=== PATIENT | male | born 1940 | race Caucasian/White ===

== ENCOUNTER 2023-11-17 13:14 | Emergency (ER) | payer OTHER, SELFPAY ==
[2023-11-17 13:22] VITALS: BP 134/98
[2023-11-17 13:39] LABS: % Basophils 0.4 % (0-2); % Eosinophils 2.3 % (0-6); % Immature Granulocytes 0.2 % (0-0.5); % Lymphocytes 19.7 % (20.5-51.1); % Monocytes 7.5 % (1.7-9.3); % Neutrophils 69.9 % (42.2-75.2); Absolute Eosinophils 0.2 10^3/uL (0-0.7); Absolute Lymphocytes 1.6 10^3/uL (1.2-3.4); Absolute Monocytes 0.6 10^3/uL (0.1-0.6); Absolute Neutrophils 5.8 10^3/uL (1.4-6.5); Hematocrit 48.6 % (39.0-52.0); Hemoglobin 16.3 g/dL (13.0-18.0); Mean Corp Hgb Conc. 33.5 g/dL (33.0-37.0); Mean Corpuscular Hgb 29.2 pg (27.0-31.0); Mean Corpuscular Volume 87.1 fL (80.0-94.0); Mean Platelet Volume 8.5 fL (7.4-10.4); Nucleated Red Blood Cells % 0 % (-); Platelet Count 224 10^3/uL (130-400); Red Blood Cell Count 5.58 10^6/uL (4.70-6.10); Red Cell Dist. Width 13.4 % (11.5-14.5); White Blood Cell Count 8.2 10^3/uL (4.8-10.8)
--- NOTE | 2023-11-17 13:57 | ED.GENMED ---
History of Present Illness
General
Chief Complaint: Chest Pain
Source: patient
Exam Limitations: none
Time Seen by Provider: 11/17/23 13:54
Nursing documentation reviewed up to this point in time: agreed with
Travel History
Have you had any contact with someone who has COVID-19?: No
Do you have any symptoms of coronavirus? Fever > 100 degrees, chills, cough, shortness of breath, sore throat, loss of taste or smell, muscle aches, or headache?: No
History of Present Illness
History of Present Illness:
83-year-old male with history of A-fib, on Metoprolol, not anticoagulated due to stopping his Eliquis on his own 2 years ago, states he has intermittent recent rectal bleeding every 3-4 weeks with constipation. Hx HTN colon resection 15 yrs ago
biopsy neg for CA.
Pt states he awakened at 9 a.m. with mid chest pain, worse with breathing, gets to 8/10 with deep breaths. 'I feel it a little bit under my chin,' otherwise no radiation, denies palpitations, SOB, abd pain, denies feeling weak or lightheaded, denies
numbness, tingling, weakness in extremities.
Past History
Past History
ED Past Medical History: Arrthythmia (atrial fibrillation) and HTN; Negative CAD, Hypercholesterolemia or NIDDM
ED Past Surgical History: Bowel resection (Colon Resection, for removal of tumor deemed noncancerous.) and Orthopedic (Hip replacement)
Social History
Tobacco: Non-smoker
Alcohol: None
Drug: None
Personal:
Living: alone
Employment: Retired
Family History
Family History: Hypertension; Negative CAD
Review of Systems
Review of Systems
Allergies reviewed?: Yes
All Other Systems: ROS reviewed and negative except as documented in HPI and ROS
Constitutional: Denies fever or fatigue
Respiratory: Denies cough or trouble breathing
Cardiac: Reports chest pain; Denies diaphoresis, palpitations or syncope
ABD/GI: Denies abdominal pain, nausea or diarrhea
: Denies dysuria, difficulty voiding or urgency
Musculoskeletal: Denies edema
Skin: Reports no symptoms
Neurological: Reports no symptoms
Phy Exam
Physical Exam
Physical Exam:
GENERAL: No acute distress. A&Ox3.
CONSTITUTIONAL: Afebrile.
EYES: clear, conjunctivae normal.
ENMT: moist mucus membranes, Pharynx nl
RESPIRATORY: Regular respirations, nonlabored, lungs clear.
CARDIOVASCULAR: Regular rate and rhythm, no murmurs, no rubs.
GI: Soft, nontender, normal BS
MUSCULOSKELETAL: Moves with ease. Well perfused. No edema
SKIN: Warm, dry, pink
PSYCH: Normal mood and affect. Well kept, interactive and appropriate
NEUROLOGIC: Awake, alert and oriented. No focal neurological deficits
Scores
Heart Score for Chest Pain Patients
STEMI patient?: Not applicable
Course
Orders/Labs/Results
Orders:
Orders
11/17/23 13:16
Electrocardiogram (*1) Urgent
Reason for Study: Chest Pain
EKG- Treatment ONCE
11/17/23 13:26
CR Chest - 2 Views Urgent
Comment:
Reason For Exam: chest pain
11/17/23 13:28
Complete Blood Count/With Diff Urgent
Comprehensive Metabolic Panel Urgent
Troponin I Urgent
11/17/23 14:27
Mag Hydrox/Al Hydrox/Simeth [Maalox] 30 ml Phenobarb/Hyoscy/Atropine/Scop [] 10 ml Viscous Lidocaine 2% [Xylocaine Viscous Cup] 10 ml PO NOW
11/17/23 14:55
Mag Hydrox/Al Hydrox/Simeth [Maalox] 30 ml .ROUTE .STK-MED ONE
Phenobarb/Hyoscy/Atropine/Scop [] 10 ml .ROUTE .STK-MED ONE
Viscous Lidocaine 2% [Xylocaine Viscous Cup] 15 ml .ROUTE .STK-MED ONE
11/17/23 16:24
Troponin I Urgent
Abnormal Lab Results
11/17/23
13:28
Lymphocytes % 19.7 L %
(20.5-51.1)
Chloride 97 L mmol/L
(98-107)
Carbon Dioxide 32 H mmol/L
(22-30)
BUN 25 H mg/dl
(9-20)
Glucose 122 H mg/dl
(70-99)
Total Bilirubin 1.5 H mg/dl
(0.2-1.3)
11/17/23 13:28
11/17/23 13:28
Vital Signs
Initial and Last Documented VS:
Initial Vital Signs
Temp Pulse Resp BP Pulse Ox
98.3 F 98 20 134/98 98
11/17/23 13:22 11/17/23 13:22 11/17/23 13:22 11/17/23 13:22 11/17/23 13:22
Last Documented Vital Signs
Temp Pulse Resp BP Pulse Ox
98.3 F 94 20 111/79 98
11/17/23 13:22 11/17/23 17:15 11/17/23 17:15 11/17/23 17:00 11/17/23 13:22
MDM/Problems Addressed
Differential Diagnosis Includes:
[place], pleurisy, GERD, musculoskeletal
MDM/Problems Addressed:
83-year-old male with history of A-fib, on Metoprolol, not anticoagulated due to stopping his Eliquis on his own 2 years ago, states he has intermittent recent rectal bleeding every 3-4 weeks with constipation. Hx HTN colon resection 15 yrs ago
biopsy neg for CA.
Pt states he awakened at 9 a.m. with mid chest pain, worse with breathing, gets to 8/10 with deep breaths. 'I feel it a little bit under my chin,' otherwise no radiation, denies palpitations, SOB, abd pain, denies feeling weak or lightheaded, denies
numbness, tingling, weakness in extremities.
ED Record from 04/16/18 has pt presenting with similar symptoms and neg workup
EKG: A fib HR 99
2:20 PM
CBC normal
CMP:No clinically significant abnormality
Chest x-ray: Radiology report read: No acute cardiopulmonary process.
Troponin: WNL
'A little' relief of chest pressure after GI cocktail.
Will check second troponin if that is normal I will discharge patient on a PPI with GI and Cardiology follow-up.
Troponin #2 is normal. Patient stable for discharge.
Referred back to PCP to assess PPI effectiveness, GI referral given if needed
Recommended cardiology f/u
Chronic conditions affecting care: HTN and Arrhythmia
*EKG
EKG Intrepretation Date: 11/17/23
Interpretation: abnormal
Comparison EKG: changes noted (T wave inversion in lateral leads)
Rate: normal
Rhythm: a-fib
[place]: normal axis
QRS Pattern: normal QRS
Ischemia: no ischemia
*Critical Care Note
Total Time (30-74mins, 75-104mins- exclusive of procedures): Not Applicable
ED Attending Note
-
Portions of this chart may have been created with voice recognition software.� Occasional wrong word or��sound alike� substitutions may have occurred due to the inherent limitations of voice recognition software.
Discharge Plan
Departure
Patient Disposition: Home (Routine Discharge)
Date of Disposition: 11/17/23
Time of Disposition: 17:16
Patient with high blood pressure during this ER visit?: No
Condition: Good
Discharge Problem:
Atypical chest pain
Instructions: Chest Pain That Is Not Caused by the Heart (DC), Acid Reflux and GERD in Adults (DC)
Prescriptions:
New
pantoprazole [Protonix] 40 mg tablet,delayed release (DR/EC)
40 mg PO DAILY Qty: 20 0RF
No Action
Atenolol
50 mg PO DAILY
Patient Comments:
unsure whether he took it yesterday morning and of actual dose
benzonatate 100 MG capsule
100 mg PO TIDPRN PRN (Reason: cough) Qty: 20 0RF
codeine-guaifenesin [Guaiatussin AC] 200 MG/20 MG liquid
5 - 10 ml PO .Q4-6HPRN PRN (Reason: COUGH) Qty: 100 0RF
albuterol sulfate 1 PUFF HFA aerosol inhaler
1 - 2 puff inhalation .Q4-6HPRN PRN (Reason: WHEEZING) Qty: 1 0RF
apixaban [Eliquis DVT-PE Treat 30D Start] 5 MG tablets,dose pack
5 - 10 mg PO DIRECTED Qty: 1 0RF
Referrals:
Emily Porter MD [Active] - Next open appointment
Adelso Palma DO [Active] - Next open appointment
Patrice Lombardo DO [Family Provider] - Call in 1-3 days for appt
Activity Restrictions/Additional Instructions:
As we discussed, nothing in today's workup showing your heart as the cause of your symptoms. Specifically, no sign of a heart attack
I sent a prescription to your pharmacy for Protonix for Reflux. Take it for 10 days and see if it helps.
See your family doctor to see in 2 weeks to see if the Protonix helped.
Call and make appointment with your clean energy policy analyst for a more thorough exam
I provided you the name of a GI doctor if needed.
Interventions
Interventions:
*Risk Screen - Suicide Last Done: 11/17/23 13:22
*General Assessment Last Done: 11/17/23 13:22
*Neglect/Abuse Screening Last Done: 11/17/23 13:22
ED- Fall Risk Assessment Last Done: 11/17/23 16:07
*ED COVID-19 Vaccine History Last Done: 11/17/23 17:40
*Nursing Disposition Last Done: 11/17/23 17:40
ED- Cardiac Assessment Last Done: 11/17/23 16:07
Discharge Date and Time
Discharge Date/Time: 11/17/23 17:23
Print Language: ICELANDIC
[2023-11-17 14:01] LABS: ALT (SGPT) 17 U/L (0-50); AST (SGOT) 28 U/L (17-59); Albumin 4.6 g/dl (3.5-5.0); Alkaline Phosphatase 51 U/L (38-126); Blood Urea Nitrogen 25 mg/dl (9-20); Calcium 9.2 mg/dl (8.4-10.2); Carbon Dioxide 32 mmol/L (22-30); Chloride 97 mmol/L (98-107); Glucose 122 mg/dl (70-99); Potassium 3.6 mmol/L (3.5-5.1); Sodium 136 mmol/L (135-145); Total Bilirubin 1.5 mg/dl (0.2-1.3); Total Protein 7.5 g/dl (6.3-8.2); eGFR > 60.00
[2023-11-17 14:09] LABS: Troponin I < 0.012 ng/ml
[2023-11-17 14:29] VITALS: BP 107/75
[2023-11-17] MEDS: MAALOX 50 PO (14:56)
[2023-11-17 15:00] VITALS: BP 108/79
[2023-11-17 16:00] VITALS: BP 103/68
[2023-11-17 17:00] VITALS: BP 111/79
[2023-11-17 17:08] LABS: Troponin I < 0.012 ng/ml
== END 2023-11-17 17:23 | disposition home or self-care (01) ==
LOC: EMR 13:14
PROVIDERS: Registered Nurse; Student in an Organized Health Care Education/Training Program; EMERGENCY PHYSICIAN Emergency Medicine; FAMILY PHYSICIAN Family Medicine
DX: R07.89 Other chest pain (principal); I48.91 Unspecified atrial fibrillation; I10 Essential (primary) hypertension
CPT/HCPCS: 99285; 71046; 80053; 84484; 85025; 93005

== ENCOUNTER 2025-04-16 02:23 | Observation (INO) | payer OTHER, SELFPAY ==
[2025-04-15 18:46] VITALS: BP 95/61
[2025-04-15 19:14] LABS: Hematocrit 53.3 % (39.0-52.0); Hemoglobin 18.9 g/dL (13.0-18.0); Mean Corp Hgb Conc. 35.5 g/dL (33.0-37.0); Mean Corpuscular Volume 85.3 fL (80.0-94.0); Nucleated Red Blood Cells % 0 % (-); Platelet Count 308 10^3/uL (130-400); Red Cell Dist. Width 13.4 % (11.5-14.5)
[2025-04-15 19:37] LABS: Blood Urea Nitrogen 46 mg/dl (9-20); Calcium 9.1 mg/dl (8.4-10.2); Carbon Dioxide 32 mmol/L (22-30); Chloride 94 mmol/L (98-107); Glucose 138 mg/dl (70-99); Sodium 135 mmol/L (135-145); eGFR 53.50
[2025-04-15 21:25] VITALS: BP 145/98
[2025-04-15 21:28] VITALS: BMI 26.8
[2025-04-15] MEDS: NSS 1000 IV (21:39)
[2025-04-15 22:06] VITALS: BP 113/83
--- NOTE | 2025-04-15 22:31 | ED.GENMED ---
History of Present Illness
General
Chief Complaint: Weakness
Source: patient
Exam Limitations: none
Time Seen by Provider: 04/15/25 21:11
History of Present Illness
History of Present Illness:
84-year-old male presents with worsening weakness over the past several days. He also notes lightheadedness. He has been dealing with a viral in his throat and has been taking Valtrex. He started with symptoms in his ear and left side of the face
several weeks ago and was given prednisone and Augmentin initially. He noted persistent discomfort to the left side of the throat and a distorted sense of taste. He has been eating or drinking much. No fevers. Seen in urgent care as well as
family doctor and ENT.
Past History
Past History
ED Past Medical History: Arrthythmia (atrial fibrillation) and HTN; Negative CAD, Hypercholesterolemia or NIDDM
ED Past Surgical History: Bowel resection (Colon Resection, for removal of tumor deemed noncancerous.) and Orthopedic (Hip replacement)
Social History
Tobacco: Non-smoker
Alcohol: None
Drug: None
Personal:
Living: alone
Employment: Retired
Family History
Family History: Hypertension; Negative CAD
Phy Exam
Physical Exam
Physical Exam:
General: Well-appearing male no acute respiratory distress
HEENT: Normal cephalic atraumatic
Heart: Regular rate and rhythm
Lungs: Clear no wheeze
Neurologic exam: Alert and oriented x 3 subtle left facial droop incomplete blinking of the left eye and decreased wrinkling of the left forehead on exam. No rash. Normal gait. No drift finger-nose sspi-wi-ages intact
Skin is warm no rash
Course
Orders/Labs/Results
Orders:
Orders
04/15/25 18:50
Electrocardiogram (*1) Urgent
Reason for Study: Vertigo / Dizzy
EKG- Treatment ONCE
04/15/25 19:01
Basic Metabolic Panel Urgent
Complete Blood Count/With Diff Urgent
04/15/25 21:29
Add On- LAB Urgent
Tests Added?: tsh reflex to free t4, lyme progressive
CT Neck With Iv Contrast Urgent
Comment:
Reason For Exam: left neck, throat pain
04/15/25 21:31
0.9% Sodium Chloride 1000 ml [Nss] 1,000 ml IV BOLUS
04/15/25 21:33
Lyme Progressive Routine
TSH Reflex To Free T4 Routine
Comment: ADD ON
04/15/25 23:22
LFT [Mctbr-Jazp-Vfcwwcz] Urgent
Potassium Urgent
04/15/25 23:46
0.9% Sodium Chloride 500 ml [Nss] 500 ml IV BOLUS
Abnormal Lab Results
04/15/25
19:01
WBC 11.8 H 10^3/uL
(4.8-10.8)
RBC 6.25 H 10^6/uL
(4.70-6.10)
Hgb 18.9 H g/dL
(13.0-18.0)
Hct 53.3 H %
(39.0-52.0)
Absolute Neuts (auto) 8.3 H 10^3/uL
(1.4-6.5)
Absolute Monos (auto) 0.9 H 10^3/uL
(0.1-0.6)
Lymphocytes % 19.9 L %
(20.5-51.1)
Chloride 94 L mmol/L
(98-107)
Carbon Dioxide 32 H mmol/L
(22-30)
BUN 46 H mg/dl
(9-20)
Glucose 138 H mg/dl
(70-99)
04/15/25 19:01
Vital Signs
Initial and Last Documented VS:
Initial Vital Signs
Temp Pulse Resp BP Pulse Ox
97.9 F 105 16 95/61 98
04/15/25 18:46 04/15/25 18:46 04/15/25 18:46 04/15/25 18:46 04/15/25 18:46
Last Documented Vital Signs
Temp Pulse Resp BP Pulse Ox
98.1 F 84 18 119/74 98
04/15/25 21:25 04/15/25 23:00 04/15/25 21:25 04/15/25 23:00 04/15/25 23:00
MDM/Problems Addressed
Differential Diagnosis Includes:
Generalized weakness lack of oral intake question underlying electrolyte abnormality or dehydration. Patient notes pain and dysfunction to the left side of the face. Exam more consistent with Fallon's palsy given the forehead involvement. He has
been on antiviral 500 mg of Valtrex 3 times a day for a week. 2 weeks ago he finished a course of Medrol. On laboratory analysis he is hemoconcentrated BUN is 43. I suspect dehydration. He was given fluids here orthostatic vital signs were
checked.
*Pulse Oximetry
SaO2: 99
Oxygen Mode of Delivery: Room air
Patient hypoxic: no
*Critical Care Note
Total Time (30-74mins, 75-104mins- exclusive of procedures): Not Applicable
Update Note
Update Note:
Orthostatic vital signs rechecked upon standing pressure did drop into the 80s over 50s. Patient remains volume depleted. Will admit to hospital for persistent hypotension and acute dehydration.
CT neck negative for acute findings.
ED Attending Note
-
Portions of this chart may have been created with voice recognition software.� Occasional wrong word or��sound alike� substitutions may have occurred due to the inherent limitations of voice recognition software.
Discharge Plan
Departure
Patient Disposition: Admit
Date of Disposition: 04/15/25
Time of Disposition: 23:47
Presentation/result/management discussed w/ accepting MD/DO: Hospitalist
Discharge Problem:
Acute dehydration
Prescriptions:
No Action
Atenolol
50 mg PO DAILY
Patient Comments:
unsure whether he took it yesterday morning and of actual dose
benzonatate 100 MG capsule
100 mg PO TIDPRN PRN (Reason: cough) Qty: 20 0RF
codeine-guaifenesin [Guaiatussin AC] 200 MG/20 MG liquid
5 - 10 ml PO .Q4-6HPRN PRN (Reason: COUGH) Qty: 100 0RF
albuterol sulfate 1 PUFF HFA aerosol inhaler
1 - 2 puff inhalation .Q4-6HPRN PRN (Reason: WHEEZING) Qty: 1 0RF
apixaban [Eliquis DVT-PE Treat 30D Start] 5 MG tablets,dose pack
5 - 10 mg PO DIRECTED Qty: 1 0RF
pantoprazole [Protonix] 40 mg tablet,delayed release (DR/EC)
40 mg PO DAILY Qty: 20 0RF
Referrals:
Patrice Lombardo DO [Family Provider, Family Practice]
Interventions
Interventions:
*Risk Screen - Suicide Last Done: 04/15/25 21:40
*General Assessment Last Done: 04/15/25 21:40
*Neglect/Abuse Screening Last Done: 04/15/25 21:40
*ED- Fall Risk Assessment Last Done: 04/15/25 21:40
*ED COVID-19 Vaccine History Last Done: 04/15/25 21:40
*ED Influenza Vaccine History Last Done: 04/15/25 21:40
Discharge Date and Time
Print Language: KYRGYZ
[2025-04-15 23:00] VITALS: BP 119/74
[2025-04-15 23:39] VITALS: BP 88/54; BP 95/72; BP 97/76; PULSE 85; PULSE 91; PULSE 98
--- NOTE | 2025-04-15 23:51 | EDRN ---
while this COMBINATION OPERATOR was obtaining ordered orthostatic vital signs, the pt told this RN that he just took his home prescribed hydrocodone and Atenolol without consulting with ER staff of the ER provider first. the pt stated 'i was due for it so i just
took it.' the pt was instructed not to take any home medications without explicit permission from the ER providers. ER MICHAEL Mcdonald was notified of above
[2025-04-15] MEDS: NSS 500 IV (23:55)
[2025-04-15 23:57] LABS: ALT (SGPT) 23 U/L (0-50); AST (SGOT) 24 U/L (17-59); Albumin 4.1 g/dl (3.5-5.0); Alkaline Phosphatase 49 U/L (38-126); Potassium 3.7 mmol/L (3.5-5.1); Total Protein 6.7 g/dl (6.3-8.2)
[2025-04-16] VITALS (15 sets, daily range): BP systolic 81–143; BP diastolic 49–93; PULSE 77–89; BMI 26.2
--- NOTE | 2025-04-16 01:24 | HPS.HSE ---
Family Physician
-
Family Physician: Patrice Lombardo
Chief Complaint
-
Lightheaded, Throat Pain
History of Present Illness
Patient is an 84y M with PMH significant for permanent A-Fib who presents to ED complaining of sore throat x several weeks, poor PO intake and lightheadedness / weakness. Patient notes that she started with L sided sore throat and ear pain about
1 month ago. He was seen by Urgent Care and started on steroid pack and Augmentin with no improvement in his symptoms. He was seen by ENT and diagnosed with viral process. He was prescribed valacyclovir and another Medrol dose pack. He had
persistent symptoms and returned to the ENT about one week later. he was told that there was evidence of improvement and advised to stay the course.
Patient states that he has not been eating / drinking well - owing to sore throat with swallowing as well as mal-affected sense of taste.
Today he felt extremely weak and noted lightheadedness upon standing / walking. He denies any fall / LOC. No N/V/D. No fevers / chills.
Medical History
Past Medical History
Past Medical History: Reports Other
Additional Past Medical History:
Permanent Atrial Fibrillation
Hypertension
Colon Polyp
Skin cancer
BPH
Past Surgical History: Reports Other
Additional Past Surgical History:
Laparoscopic Low Anterior Resection (not malignant)
Right SUYAPA
Skin Cancer Excisions
Cataracts
Social History
Tobacco: Non-smoker
Alcohol: Occasional
Drug: None
Family History
Family History: Not pertinent
Allergies / Home Medications
Allergies reflects when Allergies were last updated in [employer].
Home Medications with original date entered in [facility]
Allergy/Medication List:
Allergies
Allergy/AdvReac Type Severity Reaction Status Date / Time
No Known Allergies Allergy Verified 04/15/25 21:41
Home Medications
atenolol 50 mg-chlorthalidone 25 mg tablet 1 tab PO DAILY 04/16/25
hydrocodone 5 mg-acetaminophen 325 mg tablet 1 tab PO Q6H PRN pain 04/16/25
lidocaine HCl 2 % mucosal solution (Lidocaine Viscous) 1 applic mucous membrane TID PRN pain 04/16/25
Review of Systems
-
History Source: Patient
A 12 point ROS was completed and negative except as noted: Yes
Constitutional: Reports Fatigue; Denies Fever or Chills
EENT: Reports Sore Throat; Denies Runny Nose
Respiratory: Denies Cough or Trouble Breathing
Cardiac: Denies Chest Pain or Palpitations
Abdomen/GI: Reports Anorexia; Denies Abdominal Pain, Nausea, Vomiting or Diarrhea
: Denies Dysuria or Frequency
Musculoskeletal: Denies Joint Pain or Edema
Neurological: Reports Dizzy; Denies Headache
Psych: Denies Depression or Anxiety
Physical Exam
Vital Signs
Vital Signs
Temp Pulse Resp BP Pulse Ox
98.1 F 83 18 89/62 91
04/15/25 21:25 04/16/25 01:00 04/15/25 21:25 04/16/25 01:00 04/16/25 01:00
Physical Exam
General: Other (84y M in no acute distress.)
HEENT: Other (MMM. Oropharyngeal erythema with purulent secretions L posterior oropharynx. No vesicles, blisters, etc appreciated.)
Respiratory: Clear; No Wheezes, Rales or Rhonchi
Cardiac: S1/S2 and Irregular Rhythm; No Murmur
GI: Soft, Non Tender, Non Distended and Normal Bowel Sounds
Musculoskeletal: No Clubbing, No Cyanosis and No Edema
Neuro: AO x 3 and Other (Perhaps mild L facial asymmetry.)
Laboratory Results
-
04/15/25 19:01
04/15/25 23:22
Laboratory Results
Total Bilirubin 1.9 mg/dl (0.2-1.3) H 04/15/25 23:22
AST 24 U/L (17-59) 04/15/25 23:22
ALT 23 U/L (0-50) 04/15/25 23:22
Alkaline Phosphatase 49 U/L (38-126) 04/15/25 23:22
Impression/Plan
-
A/P: Patient is an 84y M with PMH significant for A-Fib and hypertension who presents to ED complaining of sore throat, fatigue and lightheadedness.
Orthostatic Hypotension
Polycythemia - likely due to hypovolemia
- Observe overnight for further evaluation and treatment.
- History, exam and labs suggest hypovolemia due to poor PO intake.
- BP initially improved in the ED; however, patient took his home atenolol / chlorthalidone here in the ED and his BP decreased again.
- Continue IVF support.
- Hold antihypertensive medication acutely.
- Follow orthostatic signs.
- PT eval in AM.
Pharyngitis
Fallon's Palsy
- Diagnosed with viral process after endoscopic exam by ENT.
- Completed 2 courses of steroids, a few days of Augmentin and one week of valacyclovir.
- Hold on any additional active antimicrobial treatment for now.
- Add gabapentin for pain control.
- Follow for any new / worsening symptoms.
- Diet as tolerated.
- Follow-up with ENT as scheduled.
TORIBIO
- SCr = 1.3 compared to known baseline of 0.9.
- Likely pre-renal secondary to hypovolemia as noted above.
- Follow for improvement in labs / lytes with volume replacement.
Permanent Atrial Fibrillation
- Monitor on tele overnight.
- Holding atenolol acutely as noted above (already took his dose tonight).
DVT Prophylaxis: SCDs
Code Status: Full
[2025-04-16] MEDS: LR 1000 IV ×2 (01:40→09:24)
[2025-04-16] MEDS: NORCO 5/325 1 TABLET PO ×2 (04:22→09:24)
[2025-04-16 06:47] LABS: Hematocrit 45.1 % (39.0-52.0); Hemoglobin 15.9 g/dL (13.0-18.0); Mean Corp Hgb Conc. 35.3 g/dL (33.0-37.0); Mean Corpuscular Volume 86.9 fL (80.0-94.0); Platelet Count 232 10^3/uL (130-400); Red Cell Dist. Width 13.5 % (11.5-14.5)
[2025-04-16 07:28] LABS: Blood Urea Nitrogen 38 mg/dl (9-20); Calcium 8.0 mg/dl (8.4-10.2); Carbon Dioxide 32 mmol/L (22-30); Chloride 99 mmol/L (98-107); Estimated Creatinine Clearance 53 ml/min; Glucose 91 mg/dl (70-99); Potassium 3.0 mmol/L (3.5-5.1); Sodium 136 mmol/L (135-145); eGFR > 60.00
[2025-04-16 07:57] LABS: Cortisol, Random 9.4 ug/dl
[2025-04-16] MEDS: NEURONTIN 100 MG PO (09:23)
[2025-04-16] MEDS: KCL 40 MEQ PO (11:58)
[2025-04-16] MEDS: FLUZONE HIGH-DOSE 2025-26 0.5 ML IM (11:58)
[2025-04-16 12:10] LABS: Magnesium 2.0 mg/dl (1.6-2.3)
--- NOTE | 2025-04-16 13:39 | W.PN.HOSP.TC ---
Today's Communication/Plan
-
Discharge
Assessment / Plan
Assessment / Plan
Gen-AAOx3, NAD
HEENT-NC, AT, anicteric, clear oral mm
Neck-supple
CV-reg, no M, +S1/S2
Lungs-clear B/L
Abd-soft, NT, ND
Ext-no edema
Musculoskeletal-no cyanosis, clubbing
Skin-warm and dry
Neuro-possible left facial palsy as mild weakness with smiling and wrinkling of forehead noted.
Psych-calm, cooperative
TORIBIO/volume depletion -improved with IV fluids. Hypotensive on arrival. Patient accidentally self administered atenolol/chlorthalidone in the emergency room while awaiting admission.
Blood pressure improved with IV fluid support. TORIBIO improved.
Orthostatic hypotension -due to volume depletion as above. Vitals improved with IV fluids.
Hypokalemia -replete orally. Magnesium 2.0.
Subacute pharyngitis -likely viral etiology. Treat supportively.
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 Gabapentin started for pain. Stop opioids. Follow-up with ENT. He completed a course of Valtrex. Would not give steroids.
Permanent atrial fibrillation -not on anticoagulation for unclear reasons. Recommend outpatient follow-up with his finisher special stocks.
Dispo -medically stable for discharge today. Outpatient follow-up.
Updated family at the bedside.
31 minutes spent in discharge process.
Anticipated Discharge: Today
Subjective/Interval History
-
Date of Service: April 16, 2025
Patient seen and examined, no complaints.
Objective Data
-
Labs:
Laboratory Results
04/16/25
05:44
WBC 8.8
Hgb 15.9
Hct 45.1
Plt Count 232 D
Sodium 136
Potassium 3.0 L
Chloride 99
Carbon Dioxide 32 H
BUN 38 H
Creatinine 1.1
Glucose 91
Calcium 8.0 L
Vital Signs:
Vital Signs
Temp Pulse Resp BP Pulse Ox
97.8 F 76 17 119/79 97
04/16/25 11:00 04/16/25 11:00 04/16/25 11:00 04/16/25 11:00 04/16/25 11:00
I&O
04/15/25 04/16/25 04/17/25
06:59 06:59 06:59
Intake Total 240 / 240
Balance 240 / 240
Review of Systems
-
History Source: Patient
All other systems: Reviewed and negative
--- NOTE | 2025-04-16 13:43 | W.DS.TRANS ---
DC Summary - Packaging Coordinator
-
Discharge Instructions:
Sleep Apnea Risk Low
Discharge Diagnosis/Procedures Hypotension, volume depletion, hypokalemia
Diet Regular
Activity As tolerated
Driving Restrictions As prior to admission
Bathing Restrictions None
Instructions:
Stand-Alone Forms:
Changes to Home Medications: No
Discharge Medications:
DC Medications w/original date entered in [employer]
atenolol 50 mg-chlorthalidone 25 mg tablet 1 tab PO DAILY 04/16/25
gabapentin 100 mg capsule 100 mg PO TID #90 caps 04/16/25
lidocaine HCl 2 % mucosal solution (Lidocaine Viscous) 1 applic mucous membrane TID PRN pain 04/16/25
potassium chloride 20 mEq tablet,extended release(part/cryst) 20 meq PO BID #8 tabs 04/16/25
Home Medication Changes
Pending Results: No
[2025-04-17 16:09] LABS: Lyme Antibody Screen, EIA Negative (Negative)
== END 2025-04-16 12:14 | disposition home or self-care (01) ==
LOC: 3 WEST ACU 02:23
PROVIDERS: Physician Assistant; ADMITTING PHYSICIAN Hospitalist; ATTENDING PHYSICIAN Hospitalist; EMERGENCY PHYSICIAN Emergency Medicine; FAMILY PHYSICIAN Family Medicine
DX: R53.1 Weakness (principal); R42 Dizziness and giddiness; I10 Essential (primary) hypertension; I48.21 Permanent atrial fibrillation; J02.9 Acute pharyngitis, unspecified; I95.1 Orthostatic hypotension; N40.0 Benign prostatic hyperplasia without lower urinary tract symptoms; E86.0 Dehydration; N17.9 Acute kidney failure, unspecified; D75.1 Secondary polycythemia; R22.1 Localized swelling, mass and lump, neck; I45.10 Unspecified right bundle-branch block; E87.6 Hypokalemia; Z79.899 Other long term (current) drug therapy; Z79.01 Long term (current) use of anticoagulants; Z79.624 Long term (current) use of inhibitors of nucleotide synthesis; Z82.49 Family history of ischemic heart disease and other diseases of the circulatory system; Z90.49 Acquired absence of other specified parts of digestive tract; Z85.828 Personal history of other malignant neoplasm of skin; Z86.0100 Personal history of colon polyps, unspecified; Z96.641 Presence of right artificial hip joint; Z23 Encounter for immunization; Z60.2 Problems related to living alone
CPT/HCPCS: 70491; 80048; 80076; 82533; 83735; 84132; 84443; 85025; 85027; 86618; 93005; 96360; 96361; 97162; 99285; G0378; Q9967